=== PATIENT | male | born 1960 | race Caucasian/White ===

== ENCOUNTER 2017-09-14 17:28 | Emergency (ER) | payer SELFPAY ==
[~2017-09-14] VITALS: Ht 157.5 cm; Wt 78.0 kg
[2017-09-14 17:33] VITALS: Ht 157.5 cm; Wt 78.0 kg
--- NOTE | 2017-09-14 20:14 | ERD ---
ER Documentation Chief Complaint Date/Time DATE: 09/14/17 TIME: 20:13 Chief Complaint been hit with hammer HPI This 57-year-old male patient presents to emergency department for a left perioral laceration, pt reports that he was accidently hit with a hammer today at work. ROS All systems reviewed and are negative except as per history of present illness. Allergies Allergies: Coded Allergies: No Known Allergy (Unverified , 09/14/17) PMhx/Soc Medical and Surgical Hx: pt denies Medical Hx, pt denies Surgical Hx History of Surgery: No Anesthesia Reaction: No Hx Neurological Disorder: No Hx Respiratory Disorders: No Hx Cardiac Disorders: No Hx Psychiatric Problems: No Hx Miscellaneous Medical Probl: No Hx Alcohol Use: No Hx Substance Use: No Hx Tobacco Use: No Smoking Status: Never smoker Physical Exam Vitals Vital Signs Date Time Temp Pulse Resp B/P Pulse Ox O2 Delivery O2 Flow Rate FiO2 09/14/17 22:04 98.7 62 16 137/87 99 Room Air 09/14/17 17:33 98.1 79 18 165/96 99 Physical Exam Const: Well-nourished well-hydrated well-appearing 57-year-old male patient no acute distress Head: Left perioral laceration. 1 cm not actively bleeding Eyes: Normal Conjunctiva, PERRLA, EOMI ENT: Normal External Ears, Nose and Mouth. Moist, teeth are not loose. Gingiva without ecchymosis or abrasion. Neck: Resp: Clear to auscultation bilaterally Cardio: Regular rate and rhythm, no murmurs Abd: Skin: Left perioral superficial laceration under left naris, laceration does not penetrate through to oral mucosa. Not actively bleeding Back: Neur: Awake and alert Psych: Normal Mood and Affect Results 24 hrs Current Medications Medications (Trade) Dose Ordered Sig/Hemanth Route PRN Reason Start Time Stop Time Status Last Admin Dose Admin Diphtheria/ Tetanus/Acell Pertussis (Adacel) 0.5 ml ONCE ONCE IM 09/14/17 20:30 09/14/17 20:31 DC 09/14/17 20:22 Acetaminophen (Tylenol Tab) 650 mg ONCE ONCE PO 09/14/17 20:30 09/14/17 20:31 DC Procedures/MDM Laceration Repair by me: Anesthesia: None Location: Periorbital, proximal to left naris Tendon/Joint/Nerves: No injury Foreign body: None detected after copious irrigation and exploration Technique: Dermabond Complexity: No subcutaneous sutures/mucosal repair/edge excision Post Closure Length: 1 cm This 57-year-old male patient presents to emergency department for wound repair. Patient was accidentally hit by a hammer on a back swing at work today. Patient reports periorbital tenderness, superficial laceration, not actively bleeding at this time with no dental injury or buccal trauma. I have chosen to approximate the small shallow lesion to reduce risk of infection. Patient works in construction. Wound easily approximated, patient sent home with tetanus update. Observe 1 daily for signs of infection which include increased pain, increased redness especially redness . If there are any of these signs or if you are not sure return as soon as possible. Patient is stable with no new complaints during ER course, clinically there is no current evidence to suggest anemia.,neurologic injury, vascular injury, open joint, tendon laceration, or foreign body.or any other emergent condition appearing to require further evaluation or hospitalization. I feel the patient is stable for discharge at this time. I have discussed results, examination findings, the treatment plan with the patient and family present prior to discharge. Indications for emergent reevaluation, side effects of medication were also discussed. All questions were answered. Patient verbalizes understanding and agrees with plan of care. . Departure Diagnosis: Primary Impression: Laceration Condition: Good Patient Instructions: Laceration, Face (Skin Glue) [facility] Additional Instructions: Thank you for for coming to [facility] for your care today. Please ask your nurse or provider if you have questions about your care today and do not leave until all your questions have been answered. Please use any medications given as directed and follow-up with your doctor (or the doctor you were referred to) in the next 2-3 days. If you do not have a primary care doctor you may follow up at the community hospital (listed below). You may also use motrin and tylenol as needed for fever and/or pain unless instructed otherwise by your provider or nurse. Indications for more urgent follow-up have been discussed, but you may return to the Emergency Department at ANY time for any worrisome or worsening symptoms. If you have abdominal pain, please know that no test or exam you received is perfect and you should follow up within 8 hours for continued pain. If you had any imaging studies today, such as an X-Ray or CT Scan, these studies will be reviewed later by a radiologist. You will be called if there are important findings that were not identified today, so make sure the contact information you provided at registration is correct. If you received any narcotic pain control medicine today, such as Vicodin, Morphine or Dilaudid, your coordination and judgment may be affected for a number of hours. Please do not drive or operate heavy machinery, and you may want someone to assist you at home. If you were given a prescription for narcotic medication, be aware that it is very addictive- use sparingly and only if necessary. NITHIN LANG Sep 14, 2017 20:14
[2017-09-14] MEDS ORDERED: ACETAMINOPHEN 325 MG TAB PO ONE (20:30)
[2017-09-14] MEDS ORDERED: DIPHTH/TET/ACEL PERTUSS (ADULT) 0.5 ML VIAL IM ONE (20:30)
[2017-09-14 22:04] VITALS: BP 137/87; PULSE 62; RESP 16; TEMP 98.7
== END 2017-09-14 22:04 | disposition home or self-care (01) ==
LOC: FTE 17:28
DX: S01.119A Laceration without foreign body of unspecified eyelid and periocular area, initial encounter (principal); W27.0XXA Contact with workbench tool, initial encounter; Y92.89 Other specified places as the place of occurrence of the external cause; Z23 Encounter for immunization
CPT/HCPCS: 90471; 90715

== ENCOUNTER 2018-12-05 06:18 | Emergency (ER) | payer OTHER ==
[~2018-12-05] VITALS: Ht 167.6 cm; Wt 79.8 kg
[2018-12-05 06:23] VITALS: BP 138/86; PULSE 118; RESP 20; Ht 167.6 cm; Wt 79.8 kg
[2018-12-05] MEDS ORDERED: ACETAMINOPHEN 500 MG TAB PO STA (06:50)
[2018-12-05] MEDS ORDERED: IBUPROFEN 600 MG TAB PO ONE (07:00)
--- NOTE | 2018-12-05 07:31 | ERD ---
ER Documentation Chief Complaint Chief Complaint Complains of a cough, colds and flulike symptoms x 2 days HPI This is a 58-year-old male with a history of hypercholesteremia who presents ED with complaints of flulike symptoms for the past 4 days. Patient states that he has had a fever for the past 4 days as well as body aches, tiredness, headache and cough. Denies sputum production, sore throat, ear pain, nausea, vomiting, diarrhea, constipation, neck pain, abdominal pain, shortness of breath, trouble breathing, wheezing, and all other symptoms. No known drug allergies. ROS All systems reviewed and are negative except as per history of present illness. Allergies Allergies: Coded Allergies: No Known Allergy (Unverified , 09/14/17) PMhx/Soc History of Surgery: No Anesthesia Reaction: No Hx Neurological Disorder: No Hx Respiratory Disorders: No Hx Cardiac Disorders: No Hx Psychiatric Problems: No Hx Miscellaneous Medical Probl: No Hx Alcohol Use: No Hx Substance Use: No Hx Tobacco Use: No Smoking Status: Never smoker FmHx Family History: No diabetes Physical Exam Vitals Vital Signs Date Temp Pulse Resp B/P (MAP) Pulse Ox O2 O2 Flow FiO2 Time Delivery Rate 12/05/18 103.0 07:01 12/05/18 103.0 07:01 12/05/18 102.3 118 20 138/86 94 06:23 (103) Physical Exam Physical Exam Vitals signs: Reviewed by me. General: Well developed, well nourished, in no acute distress. Patient is awake and alert. Head: Normocephalic, atraumatic. Eyes: Normal conjunctiva, Pupils PERRLA, EOM intact grossly ENT: Pharynx is clear, Moist mucous membranes, external ears, nose and mouth normal Neck: Supple, no masses, lymphadenopathy or JVD Respiratory: Clear to auscultation bilaterally with no wheezing, rhonchi, rales, no distress Cardiovascular: RRR, no murmurs, rubs, or gallops MSK: No edema Back: No midline tenderness. Neurologic: Alert and oriented, moving all extremities, normal speech, no focal weakness, no cerebellar signs. Normal mentation Skin: warm and dry, No rash Psych: Normal mood Results 24 hrs Current Medications Medications Dose Sig/Hemanth Start Time Status Last (Trade) Ordered Route PRN Stop Time Admin Dose Reason Admin Ibuprofen 600 mg ONCE ONCE 12/05/18 DC 12/05/18 (Motrin) PO 07:00 12/05/18 07:01 07:01 1,000 mg ONCE STAT 12/05/18 DC 12/05/18 Acetaminophen PO 06:50 12/05/18 07:01 (Tylenol 06:51 Tab) Procedures/MDM EKG, MONITORS, & DIAGNOSTIC IMAGING: [place] [address] Radiology Main Line: [phone] DIAGNOSTIC IMAGING REPORT Patient: SEJAL CROSS : 1960 Age: 58 Sex: M MR #: [id number] DOS: 12/05/18 0650 Ordering MD: OSMAR WILLIS PA-C Location: [facility] Room/Bed: PROCEDURE: XR Chest. CLINICAL INDICATION: Cough TECHNIQUE: PA and lateral views of the chest were obtained COMPARISON: None FINDINGS: The heart and mediastinum are within normal limits. The lungs are clear. There is no pleural effusion or pneumothorax. The bones and soft tissues are unremarkable. RPTAT: AA IMPRESSION: No acute disease. .Kennedy Blair MD, MD Date Time Electronically viewed and signed by .Kennedy Blair MD, on 12/05/2018 07 :32 .S/ CC: OSMAR WILLIS PA-C [id number] LAB INTERPRETATION: Influenza A positive ER COURSE: The patient was given Tylenol Motrin The medication was well tolerated and the patient reports improvement in symptoms. The patient was stable throughout ED course. I kept the patient and/or family informed of laboratory and diagnostic imaging results throughout the emergency room course. The patient was promptly evaluated and a treatment plan was devised based on H&P and other data. This plan was discussed with the patient who agreed and had no further questions or concerns prior to discharge. MEDICAL DECISION MAKING: This is a 58-year-old male presents ED with complaints of flulike symptoms for the past 4 days. The patient's clinical presentation is very consistent with an influenza. influenza a is positive. Chest x-ray is unremarkable. No evidence of pneumonia. The patient is well-appearing without respiratory distress. The patient does not exhibit any clinical signs or symptoms concerning for serious bacterial infection or systemic illness. Based on history and clinical exam findings the patient does not appear to have evidence of pneumonia, strep pharyngitis, urinary tract infection, bacteremia, sepsis, or meningitis. For these reasons I do not believe it is necessary to obtain additional laboratory testing or diagnostic imaging. I believe it would be appropriate for symptom control, and close outpatient primary care follow-up. We discussed follow up with the patient's primary care doctor within 24 to 48 hours as needed. We also discussed return to the emergency room for worsening symptoms or worsening condition. DISPOSITION PLAN: We discussed follow up with the patient's primary care doctor within 24 to 48 hours. Patient counseled regarding my diagnostic impression and care plan. Prior to discharge all questions answered. Pt agrees with treatment plan and understands strict return precautions. Precautionary instructions provided including instructions to return to the ER if not improving or for any worsening or changing symptoms or concerns. SPECIALIST FOLLOW UP RECOMMENDED: None Patient has been advised to follow up with primary care in 1-2 days. Disclaimer: Inadvertent spelling and grammatical errors are likely due to EHR/dictation software use and do not reflect on the overall quality of patient care. Also, please note that the electronic time recorded on this note does not necessarily reflect the actual time of the patient encounter. Departure Diagnosis: Primary Impression: Influenza Condition: Stable Patient Instructions: Influenza (Adult) [facility] Additional Instructions: Paciente aconseja volver a Departamento de urgencias inmediatamente para sntomas nuevos o que empeoran . Paciente aconseja posteriores con el PCP en 1-2 curiel . Paciente verbaliza la comprehensin y est de acuerdo con el tratamiento y el curso de accin. Si el paciente no tiene ninguna de atencin primaria pueden seguir con [facility] [address] [place] [address] o [facility] + [address] [address] OSMAR WILLIS PA-C Dec 05, 2018 07:31
[2018-12-05] MEDS ORDERED: IBUP-1542 PO (07:35)
[2018-12-05] MEDS ORDERED: D-ME473S2 PO (07:35)
[2018-12-05] MEDS ORDERED: OSEL75CA23 PO (07:35)
== END 2018-12-05 07:46 | disposition home or self-care (01) ==
LOC: FTE 06:18
DX: J10.1 Influenza due to other identified influenza virus with other respiratory manifestations (principal)
CPT/HCPCS: 71046; 87400; Z7610